=== PATIENT | male | born 1975 | race Two or more races ===

== ENCOUNTER 2019-06-27 10:45 | Inpatient (IN) | payer OTHER ==
[~2019-06-27] VITALS: Ht 170.2 cm; Wt 105.7 kg
[~2019-06-27 10:45] MED LIST: CIPRO500 MG PO; CLONAZEPAM1 MG PO; PERCOCET 10-321 EACH; PRILOSEC10 MG; PRILOSEC10 MG PO; TAMS0.4C PO; ULTRAM50 MG PO; VASOTEC10 MG PO; WELLBUTRIN SR100 MG PO
[2019-06-27] MEDS ORDERED: RESTORIL15 MG PO (13:23)
[2019-06-27] MEDS ORDERED: [UNRECOGNIZED DRUG - OTHER] (13:23)
[2019-06-27] MEDS ORDERED: ZESTRIL20 MG PO (14:15)
[2019-07-04] MEDS ORDERED: CLONAZEPAM2 MG (08:28)
== END 2019-07-06 15:53 | disposition home or self-care (01) | DRG 330 ==
LOC: EDSTATUS 10:45 → ADM 10:45 → SURH 07-03 05:50 → O/R 07-03 05:50 → SURH 07-03 10:45
PROVIDERS: ADMIT Colon & Rectal Surgery; ATTEND Colon & Rectal Surgery
PROC: 0WQF4ZZ Repair Abdominal Wall, Percutaneous Endoscopic Approach (ICD-10-PCS; 2019-07-03)
PROC: 0DQB4ZZ Repair Ileum, Percutaneous Endoscopic Approach (ICD-10-PCS; 2019-07-03)
PROC: 0DSB4ZZ Reposition Ileum, Percutaneous Endoscopic Approach (ICD-10-PCS; principal; 2019-07-03 10:45)
DX: Z43.2 Encounter for attention to ileostomy (principal); K43.3 Parastomal hernia with obstruction, without gangrene; K56.51 Intestinal adhesions [bands], with partial obstruction; K91.71 Accidental puncture and laceration of a digestive system organ or structure during a digestive system procedure; I10 Essential (primary) hypertension

== ENCOUNTER 2020-09-19 05:40 | Day surgery (SDC) | payer OTHER ==
[~2020-09-19 05:40] MED LIST changes: +CLONAZEPAM2 MG; +RESTORIL15 MG PO; +ZESTRIL20 MG PO; +[UNRECOGNIZED DRUG - OTHER]
== END 2020-09-19 13:25 | disposition home or self-care (01) ==
LOC: AMB-ENDOS 05:40
PROVIDERS: ATTEND Colon & Rectal Surgery
DX: K62.89 Other specified diseases of anus and rectum (principal); Z20.822 Contact with and (suspected) exposure to COVID-19; Z12.11 Encounter for screening for malignant neoplasm of colon